=== PATIENT | female | born 1980 | race Two or more races ===

== ENCOUNTER 2020-07-22 17:40 | Emergency (ER) | payer OTHER ==
[~2020-07-22] VITALS: Ht 167.6 cm; Wt 108.9 kg
[2020-07-22 17:56] VITALS: BP 125/83
[2020-07-22] MEDS ORDERED: CYCLOBENZAPRINE 10 MG TAB PO ONE (18:05)
[2020-07-22] MEDS ORDERED: KETOROLAC 60 MG/2 ML VIAL IM ONE (18:05)
[2020-07-22] MEDS ORDERED: MORPHINE SULFATE 5 MG/ML VIAL IM ONE (18:55)
[2020-07-22 20:06] VITALS: BP 125/83
== END 2020-07-22 20:06 | disposition home or self-care (01) ==
LOC: MED 17:40
DX: G89.29 Other chronic pain (principal); M54.9 Dorsalgia, unspecified; Z88.0 Allergy status to penicillin
CPT/HCPCS: 96372; 99284; J1885; J2270

== ENCOUNTER 2021-07-04 17:49 | Emergency (ER) | payer OTHER ==
[~2021-07-04] VITALS: Ht 167.6 cm; Wt 108.9 kg
[2021-07-04 18:17] VITALS: BP 153/86
[2021-07-04] MEDS ORDERED: IBUPROFEN 600 MG TAB PO ONE (18:55)
--- NOTE | 2021-07-04 19:10 | NUR ---
41/F WITH C/O COUGH AND CHEST PAIN X3 DAYS. DENIES TAKING MEDICATION AT HOME, WAS SEEN AT A DIFFERENT ER YESTERDAY FOR SAME SYMPTOMS AND D/C. REPORTS RECEIVING TORADOL AT THE ER YESTERDAY AND STATES SHE GOT SOME RELIEF. DENIES SOB OR FEVERS AT THIS TIME.
[2021-07-04] MEDS ORDERED: ACET-10509 PO (20:04)
[2021-07-04] MEDS ORDERED: PROM118S5 PO (20:04)
[2021-07-04] MEDS ORDERED: IBUP-2213 PO (20:04)
[2021-07-04 20:45] VITALS: BP 114/79
--- NOTE | 2021-07-04 20:45 | NUR ---
Patient discharged with v/s stable. Written and verbal after care instructions given and explained. Patient alert, oriented and verbalized understanding of instructions. Ambulatory with steady gait. All questions addressed prior to discharge. ID band removed. Patient advised to follow up with PMD. Rx of TYLENOL, IBUPROFEN, PROMETHAZINE given. Patient educated on indication of medication including possible reaction and side effects. Opportunity to ask questions provided and answered.
== END 2021-07-04 20:45 | disposition home or self-care (01) ==
LOC: MED 17:49
DX: J06.9 Acute upper respiratory infection, unspecified (principal); E10.9 Type 1 diabetes mellitus without complications; Z79.1 Long term (current) use of non-steroidal anti-inflammatories (NSAID); Z79.899 Other long term (current) drug therapy; Z88.0 Allergy status to penicillin
CPT/HCPCS: 71045; 93005; 99283

== ENCOUNTER 2021-07-12 03:23 | Emergency (ER) | payer OTHER ==
[~2021-07-12] VITALS: Ht 167.6 cm; Wt 108.9 kg
[~2021-07-12 03:23] MED LIST: ACET-10509 PO; IBUP-2213 PO; PROM118S5 PO
[2021-07-12 03:30] VITALS: BP 100/56
[2021-07-12] MEDS ORDERED: methylPREDNISolone SS 125 MG/2 ML VIAL IM ONE (04:25)
[2021-07-12] MEDS ORDERED: ALBUTEROL SULFATE/IPRATROPIU 3 ML SOL IH ONE ×2 (04:25→05:41)
[2021-07-12] MEDS ORDERED: IBUPROFEN 800 MG TAB PO ONE (05:00)
[2021-07-12] MEDS ORDERED: PRED20TA5 PO (05:24)
[2021-07-12] MEDS ORDERED: ALBU0.0912 IH (05:24)
[2021-07-12] MEDS ORDERED: methylPREDNISolone SS 125 MG/2 ML VIAL ONE (05:44)
[2021-07-12] MEDS ORDERED: ACETAMINOPHEN EXTRA STRENGTH 500 MG TAB PO ONE (05:45)
[2021-07-12] MEDS ORDERED: diphenhydrAMINE 50 MG/ML VIAL IVP ONE (05:45)
--- NOTE | 2021-07-12 05:49 | NUR ---
RT giving breathing tx
--- NOTE | 2021-07-12 05:50 | NUR ---
medicated patient per ERMD order.
--- NOTE | 2021-07-12 06:04 | NUR ---
swabs collected and sent to lab
[2021-07-12 06:27] VITALS: BP 146/75
--- NOTE | 2021-07-12 06:27 | NUR ---
Patient discharged with v/s stable. Written and verbal after care instructions given and explained. Patient alert, oriented and verbalized understanding of instructions. Ambulatory with steady gait. All questions addressed prior to discharge. ID band removed. Patient advised to follow up with PMD. Rx of albuterol sulfate and deltasone given. Patient educated on indication of medication including possible reaction and side effects. Opportunity to ask questions provided and answered.
== END 2021-07-12 06:27 | disposition home or self-care (01) ==
LOC: MED 03:23
DX: R05.9 Cough, unspecified (principal); R09.89 Other specified symptoms and signs involving the circulatory and respiratory systems; Z20.822 Contact with and (suspected) exposure to COVID-19
CPT/HCPCS: 71045; 87426; 87804; 94640; 96372; 99284; J2930

== ENCOUNTER 2021-07-29 17:58 | Emergency (ER) | payer OTHER ==
[~2021-07-29] VITALS: Ht 167.6 cm; Wt 108.9 kg
[~2021-07-29 17:58] MED LIST changes: +ALBU0.0912 IH; +PRED20TA5 PO
[2021-07-29 18:27] VITALS: BP 136/95
--- NOTE | 2021-07-29 18:31 | NUR ---
PT TO WAIT IN LOBBY.
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
[2021-07-29] MEDS ORDERED: MORPHINE SULFATE 4 MG/ML SYR ONE (19:28)
[2021-07-29] MEDS ORDERED: MORPHINE SULFATE 4 MG/ML SYR IM ONE (19:30)
[2021-07-29] MEDS ORDERED: ONDANSETRON 4 MG ODT PO ONE (19:30)
[2021-07-29] MEDS ORDERED: ACET-8386 PO (21:34)
[2021-07-29 22:00] VITALS: BP 136/95
--- NOTE | 2021-07-29 22:04 | NUR ---
Patient discharged with v/s stable. Written and verbal after care instructions given and explained. Patient alert, oriented and verbalized understanding of instructions. Ambulatory with steady gait. All questions addressed prior to discharge. ID band removed. Patient advised to follow up with PMD. Rx of HYDROCODONE/ACETAMINOPHEN given. Patient educated on indication of medication including possible reaction and side effects. Opportunity to ask questions provided and answered.
== END 2021-07-29 22:04 | disposition home or self-care (01) ==
LOC: MED 17:58
DX: S16.1XXA Strain of muscle, fascia and tendon at neck level, initial encounter (principal); E10.9 Type 1 diabetes mellitus without complications; Z90.49 Acquired absence of other specified parts of digestive tract; Z88.0 Allergy status to penicillin; Z98.890 Other specified postprocedural states; Z79.899 Other long term (current) drug therapy; V89.2XXA Person injured in unspecified motor-vehicle accident, traffic, initial encounter; Y93.89 Activity, other specified; Y92.89 Other specified places as the place of occurrence of the external cause; Y99.8 Other external cause status
CPT/HCPCS: 72050; 72072; 96372; 99284; J2270; Q0162

== ENCOUNTER 2021-11-11 20:51 | Inpatient (IN) | payer OTHER ==
[~2021-11-11] VITALS: Ht 167.6 cm; Wt 112.9 kg
[~2021-11-11 20:51] MED LIST changes: +ACET-8386 PO
[2021-11-11 21:06] VITALS: BP 135/80
--- NOTE | 2021-11-11 21:18 | NUR ---
Dennis otero in [facility] - 11/11/21 at 2126 by JUSTINE PT W/C ASSISTED TO BED 2
--- NOTE | 2021-11-11 21:26 | NUR ---
PT W/C ASSISTED TO BED 11 FOLLOWING URINE COLLECTION
--- NOTE | 2021-11-11 21:50 | NUR ---
41 Y/O F PRESENT TO ED WITH C/C OF BACK PAIN. PT A0X4, ABLE TO LET NEEDS KNOWN. 10/10 SHARP STABBING PAIN TO LOWER BACK [id number] THAT RADIATES DOWN BILAT LOWER EXTREMITIES AND UP BACK TOWARDS NECK. PT ABLE TO MOVE LOWER EXTREMITIES WITH SENSATION PRESENT, BUT UNABLE TO BARE WEIGHT. PETECHIAE PRESENT TO BILAT FEET AND LOWER EXTREMITIES. INCREASED PAIN ON PELPATION TO BILAT CALF AND THIGHS. PREVIOUSLY TAKEN IBUPROFEN AND TYLENOL WITHOUT RELIEF. PMH: DM TYPE 1 ALLERGIES: PCN
[2021-11-11] MEDS ORDERED: ONDANSETRON 4 MG/2 ML VIAL IVP ONE (22:20)
[2021-11-11] MEDS ORDERED: MORPHINE SULFATE 4 MG/ML SYR IVP ONE (22:20)
[2021-11-11] MEDS ORDERED: NACL 0.9% 1,000 ML IV ONE (22:20)
[2021-11-11 22:35] LABS: BASOPHILS % (AUTO) 0.2 % (0.0-2.0); EOSINOPHILS # (AUTO) 0.2 K/uL (0-0.4); EOSINOPHILS % (AUTO) 1.8 % (0.0-4.0); HEMATOCRIT 40.8 % (36-48); HEMOGLOBIN 13.4 g/dL (12.0-16.0); MEAN CORPUSCULAR HEMOGLOBIN 27 pg (27-31); MEAN CORPUSCULAR HGB CONC 33 g/dL (33-37); MONOCYTES # (AUTO) 0.5 K/uL (0.8-1.0); MONOCYTES % (AUTO) 4.8 % (1.7-9.3); NEUTROPHILS % (AUTO) 62.2 % (42.2-75.2); PLATELET COUNT (AUTO) 356 K/uL (140-450); RED BLOOD CELL COUNT(AUTO) 4.98 MIL/uL (4.20-5.40); RED CELL DISTRIBUTION WIDTH 14.3 % (11.6-13.7); WHITE BLOOD COUNT (AUTO) 9.6 K/uL (4.8-10.8)
--- NOTE | 2021-11-11 22:51 | NUR ---
PT TAKEN FOR CT OF LOWER BACK
[2021-11-11 23:01] LABS: ALBUMIN 3.1 g/dL (3.4-5.0); ANION GAP 11.6 (8-16); CARBON DIOXIDE 27.4 mmol/L (21-32); TOTAL BILIRUBIN 0.2 mg/dL (0.0-1.0)
--- NOTE | 2021-11-11 23:21 | NUR ---
PT ASSISTED TO RESTROOM
[2021-11-11] MEDS ORDERED: INSULIN REGULAR, HUMAN 100 UNIT/ML VIAL IV ONE (23:35)
[2021-11-12] MEDS ORDERED: ONDANSETRON 4 MG/2 ML VIAL ONE (00:16)
[2021-11-12] MEDS ORDERED: MORPHINE SULFATE 4 MG/ML SYR ONE (00:16)
--- NOTE | 2021-11-12 01:00 | NUR ---
PT OBSERVED. LAYING IN BED WITH FACIAL GRIMACING DUE TO BACK PAIN. VSS.
[2021-11-12] MEDS ORDERED: MORPHINE SULFATE 4 MG/ML SYR IVP ONE ×2 (01:35→07:50)
--- NOTE | 2021-11-12 02:15 | NUR ---
PT COMPLAINED OF SEVERE BACK PAIN. MEDICATED WITH MORPHINE ORDERED.
--- NOTE | 2021-11-12 03:00 | NUR ---
PT ASSISTED TO RESTROOM FOR UA COLLECTION
[2021-11-12 03:59] LABS: APPEARANCE,URINE SL CLOUDY (CLEAR); BILIRUBIN,URINE NEGATIVE (NEGATIVE); BLOOD, URINE TRACE-I (NEGATIVE); COLOR,URINE YELLOW (YELLOW); LEUKOCYTE ESTERASE ,URINE TRACE (NEGATIVE); NITRITE, URINE POSITIVE (NEGATIVE); PH,URINE 6.5 (5.0-9.0); UGLUCOSE TRACE (NEGATIVE)
[2021-11-12 04:04] LABS: RBC,URINE 0-5 /HPF (0-5)
[2021-11-12] MEDS ORDERED: cefTRIAXone 2,000 MG in DEXTROSE 5% 100 ML IV ONE (05:40)
--- NOTE | 2021-11-12 07:24 | NUR ---
REPORT GIVEN TO [facility] MANAGER PERIOPERATIVE FOR CONTINUITY OF CARE
--- NOTE | 2021-11-12 07:25 | NUR ---
Report received from MAUREEN Carpenter for transfer of care.
--- NOTE | 2021-11-12 07:35 | NUR ---
JAE specimen obtained, walked to lab. Handed to CPT Stephanie.
[2021-11-12] MEDS ORDERED: cefTRIAXone 2,000 MG VIAL ONE (07:38)
[2021-11-12] MEDS ORDERED: HYDROcodone/APAP 5/325 MG 1 TAB TAB PO PRN (07:40)
[2021-11-12] MEDS ORDERED: ACETAMINOPHEN 325 MG TAB PO PRN (07:40)
[2021-11-12] MEDS ORDERED: ONDANSETRON 4 MG/2 ML VIAL IVP PRN (07:40)
[2021-11-12] MEDS ORDERED: ZOLPIDEM 5 MG TAB PO PRN (07:40)
[2021-11-12] MEDS ORDERED: LORazepam 1 MG TAB PO PRN (07:40)
[2021-11-12] MEDS ORDERED: DEXTROSE 50% 50 ML SYR IVP PRN (07:55)
--- NOTE | 2021-11-12 08:19 | NUR ---
Patient was handed breakfast. Patient is sitting up on bed. All needs met. No signs of distress noted.
[2021-11-12] MEDS: NACL 0.9% 1,000 ML IV SCH ×2 (09:07→20:10)
--- NOTE | 2021-11-12 09:12 | NUR ---
Patient will be admitted to care of Dr. Cote. Admited to Med-Surg. Will go to room 104 A. Belongings list completed. Report to MAUREEN Lozano.
[2021-11-12 09:30] VITALS: BP 155/103
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
--- NOTE | 2021-11-12 10:30 | NUR ---
REEVALUATED PT'S PAIN LEVEL. PT CURRENTLY SLEEPING, EASILY AROUSED TO NAME. PT REQUESTED OXYGEN--DOES NOT USE HOME O2--NC GIVEN AT 0.5L/MIN FOR COMFORT. PT DENIES ANY PAIN AT THIS TIME. Addendum: 11/12/21 at 1432 by Marta Lai RN PAIN REEVALUATED AT 1130. PRN MORPHINE GIVEN AT 1039.
[2021-11-12] MEDS: ENOXAPARIN 40 MG/0.4 ML SYR SUBQ SCH (10:38)
[2021-11-12] MEDS: INSULIN LISPRO SLIDING SCALE 100 UNITS/ML VIAL SUBQ PRN ×3 (10:39→20:23)
[2021-11-12] MEDS: DOCUSATE SODIUM 100 MG GELCAP PO SCH (10:39)
[2021-11-12] MEDS: BLOOD GLUCOSE MONITORING 1 DEV DEV FS SCH ×3 (10:39→20:20)
[2021-11-12] MEDS: MORPHINE SULFATE 4 MG/ML SYR IVP PRN ×2 (10:39→20:15)
--- NOTE | 2021-11-12 10:39 | NUR ---
PT STATES SHE IS HAVING PAIN IN HER BACK AT A SCALE OF 10/10. PT WAS GIVEN MORPHINE IVP ORDERED. BP WAS 155/103 PRIOR TO ADMINISTRATION OF MEDICATION.
--- NOTE | 2021-11-12 11:16 | NUR ---
DC PLANNIN YRS OLD FEMALE PATIENT WAS ADMITTED FROM HOME WITH A DX OF PYELONEPHRITIS AND DIABETES. PATIENT HAS A HX OF DM.LUMBAR SPINE CT SHOWED NO ACUTE BONY ABNORMALITY. RAPID COVID TEST NEGATIVE. BLOOD AND URINE CULTURE PENDING. ADMINISTERED IVF, IV ABX ROCEPHIN AND CONTINUED HOME MEDS. DC PLAN TO GO HOME WHEN STABLE CM TO FOLLOW. Addendum: 11/14/21 at 1036 by Yokasta Felix RN DC PLANNING: CONTINUE IV ABX ROCEPHIN AND IVF. AWAITING FOR FINAL URINE CULTURE RESULT. DC PLAN TO GO HOME WHEN STABLE. CM TO FOLLOW
--- NOTE | 2021-11-12 14:00 | NUR ---
PT IS AWAKE AND ALERT. DENIES PAIN AT THIS TIME. IN AND OUT OF SLEEP WITH NO DISTRESS NOTED. IV IS PATENT AND INFUSING ORDERED. PT IS STABLE.
[2021-11-12 16:00] VITALS: BP 120/76
--- NOTE | 2021-11-12 16:00 | NUR ---
PT IS UP TO THE RESTROOM. NO DISTRESS NOTED. DENIES ANY PAIN WHILE URINATING. PT ABLE TO URINATE ADEQUATE AMOUNT. PAIN ON THE BACK AND LEGS STATED BY PT. DOES NOT NEED PAIN MEDS AT THIS TIME. SHE WILL NOTIFY WHEN NEEDING PAIN MEDS.
--- NOTE | 2021-11-12 17:12 | NUR ---
PT COMPLAINED OF PAIN IN LOWER BACK. PAIN RADIATES TO UPPER BACK AND NECK, AND DOWN TO LEGS. PAIN RATED AT 8/10. VITAL SIGNS WNL, WITH BP AT 120/81. PRN PAIN MEDICATION GIVEN, PT ASSISTED IN REPOSITIONING FOR COMFORT.
--- NOTE | 2021-11-12 19:14 | NUR ---
ENDORSED PT TO TILLER MAN NURSE FOR CONTINUITY OF CARE. PT IS STABLE. PLAN OF CARE DISCUSSED.
--- NOTE | 2021-11-12 19:15 | NUR ---
REPORT GIVEN FROM AM NURSE. PATIENT WELL RESTED ON ROOM AIR. NO ACUTE DISTRESS NOTED. BREATHING EVEN UNLABORED. SAFETY MEASURES IN PLACE. PATIENT IS ABLE TO AMBULATE WITH ASSIST. CALL LIGHT WITHIN REACH. WILL CONTINUE TO MONITOR.
--- NOTE | 2021-11-12 20:20 | NUR ---
BLOOD SUGAR WAS 360, HUMALOG INSULIN ADMINISTERED ORDERED PER SLIDING SCALE.
[2021-11-13] VITALS: BP 151/78
[2021-11-13] MEDS: BLOOD GLUCOSE MONITORING 1 DEV DEV FS SCH ×4 (06:38→21:01)
--- NOTE | 2021-11-13 06:38 | NUR ---
BLOOD SUGAR WAS 247, HUMALOG INSULIN ADMINISTERED ORDERED PER SLIDING SCALE.
[2021-11-13] MEDS: INSULIN LISPRO SLIDING SCALE 100 UNITS/ML VIAL SUBQ PRN ×4 (06:39→21:01)
--- NOTE | 2021-11-13 07:10 | NUR ---
BEDSIDE ENDORSEMENT GIVEN TO AM SHIFT RN FOR CONTINUITY OF CARE. PATIENT IS STABLE.
--- NOTE | 2021-11-13 07:15 | NUR ---
PATIENT HAS BEEN SCREENED AND CATEGORIZED MODERATE NUTRITION RISK. PATIENT WILL BE SEEN WITHIN 3-5 DAYS OF ADMISSION. / SHANELL AMBRIZ RD
[2021-11-13] MEDS: MORPHINE SULFATE 4 MG/ML SYR IVP PRN (07:23)
--- NOTE | 2021-11-13 07:23 | NUR ---
COMPLAINED OF SEVERE PAIN, MEDICATED WITH MORPHINE PRN.
[2021-11-13 07:28] LABS: BASOPHILS # (AUTO) 0.1 K/uL (0.00-0.22); BASOPHILS % (AUTO) 0.8 % (0.0-2.0); EOSINOPHILS # (AUTO) 0.2 K/uL (0-0.4); EOSINOPHILS % (AUTO) 2.7 % (0.0-4.0); HEMATOCRIT 37.3 % (36-48); HEMOGLOBIN 12.1 g/dL (12.0-16.0); LYMPHOCYTES % (AUTO) 44.7 % (20.5-51.1); MEAN CORPUSCULAR HEMOGLOBIN 27 pg (27-31); MEAN CORPUSCULAR HGB CONC 32 g/dL (33-37); MEAN CORPUSCULAR VOLUME 83.3 fL (80-94); MONOCYTES # (AUTO) 0.4 K/uL (0.8-1.0); MONOCYTES % (AUTO) 5.8 % (1.7-9.3); NEUTROPHILS # (AUTO) 3.1 K/uL (1.8-7.7); PLATELET COUNT (AUTO) 311 K/uL (140-450); RED BLOOD CELL COUNT(AUTO) 4.48 MIL/uL (4.20-5.40); RED CELL DISTRIBUTION WIDTH 14.4 % (11.6-13.7); WHITE BLOOD COUNT (AUTO) 6.8 K/uL (4.8-10.8)
--- NOTE | 2021-11-13 07:53 | NUR ---
RECEIVED PATIENT, AOX4, RESPIRATIONS EVEN AND UNLABORED ON ROOM AIR. REPORTS PAIN IN MID-BACK RADIATING TO BILATERAL LEGS, JUST GIVEN PRN MORPHINE. IV FLUIDS INFUSING. WILL CONTINUE TO MONITOR.
[2021-11-13 08:00] VITALS: BP 151/78
[2021-11-13 08:06] LABS: ALBUMIN 2.5 g/dL (3.4-5.0); ANION GAP 8.7 (8-16); CARBON DIOXIDE 26.6 mmol/L (21-32); CREATININE 0.6 mg/dL (0.6-1.3); MAGNESIUM 1.8 mg/dL (1.8-2.4); POTASSIUM 4.3 mmol/L (3.5-5.1); TOTAL BILIRUBIN 0.2 mg/dL (0.0-1.0)
[2021-11-13] MEDS: DOCUSATE SODIUM 100 MG GELCAP PO SCH (08:34)
[2021-11-13] MEDS: NACL 0.9% 1,000 ML IV SCH ×2 (08:34→21:10)
[2021-11-13] MEDS: ENOXAPARIN 40 MG/0.4 ML SYR SUBQ SCH (08:36)
--- NOTE | 2021-11-13 09:07 | NUR ---
AMBULATED WITH PATIENT TO BATHROOM, UNSTEADY GAIT. VOIDED 400 CC DARK YELLOW URINE. REPORTS PAIN IS IMPROVING, HOWEVER STILL EXPERIENCING PAIN WITH MOVEMENT. PAIN MEDICATION OPTIONS DISCUSSED WITH PATIENT. FALL AND SAFETY PRECAUTIONS IN PLACE.
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
--- NOTE | 2021-11-13 15:48 | NUR ---
PATIENT REPORTED PAIN IN MID-BACK. PRN NORCO GIVEN. AMBULATED TO BATHROOM, VOIDED CLEAR YELLOW URINE. TOLERATING MEALS WELL WITH NO NAUSEA/VOMITING. IV FLUIDS INFUSING. WILL CONTINUE TO MONITOR.
[2021-11-13 16:00] VITALS: BP 140/71
[2021-11-13] MEDS: HYDROcodone/APAP 10/325 MG 1 TAB TAB PO PRN (16:11)
[2021-11-13] MEDS: MORPHINE SULFATE 2 MG/ML SYR IVP PRN ×2 (16:45→20:44)
--- NOTE | 2021-11-13 16:56 | NUR ---
PATIENT WAS STILL EXPERIENCING SEVERE PAIN ONE HOUR AFTER NORCO ADMINISTRATION. NOTIFIED DR KEY WHO WILL HOLD DISCHARGE AND ORDERED PRN MORPHINE. UPDATED PATIENT AND OF PLAN OF CARE. AMBULATED TO BATHROOM, WILL CONTINUE TO MONITOR.
--- NOTE | 2021-11-13 17:34 | NUR ---
PATIENT REPORTS PAIN IS RELIEVED AFTER MORPHINE. AT BEDSIDE. UPDATED PATIENT THAT SHE WILL BE STAYING THE NIGHT.
--- NOTE | 2021-11-13 18:51 | NUR ---
PATIENT REPORTS PAIN IS COMING BACK, BECOMING INTOLERABLE. TOLERATED LUNCH WELL, NO NAUSEA/VOMITING. NOTIFIED DR. KEY. WILL ENDORSE TO NIGHT MAUREEN.
[2021-11-13] MEDS: KETOROLAC 30 MG/ML VIAL IVP PRN (19:08)
--- NOTE | 2021-11-13 19:09 | NUR ---
RECEIVED ORDER FOR TORADOL. GIVEN TO PATIENT.
--- NOTE | 2021-11-13 19:15 | NUR ---
ENDORSED TO NIGHTSHIFT NURSE FOR CONTINUITY OF CARE. DISCUSSED PLAN OF CARE. PT STABLE.
--- NOTE | 2021-11-13 19:20 | NUR ---
RECEIVED BEDSIDE REPORT FROM DAY SHIFT RN FOR CONTINUITY OF CARE. PT IS AWAKE IN BED. AAOX4 ON RA. PT HAS NO COMPLAINS AT THIS TIME. PT HAS LEFT AC 20 GAUGE WITH NS 80 ML/HR. CALL LIGHT WITHIN REACH. ALL SAFETY MEASURES TAKEN. WILL CONTINUE TO MONITOR THE PT.
[2021-11-13 20:00] VITALS: BP 132/71
--- NOTE | 2021-11-14 00:14 | NUR ---
PT IS AWAKE IN BED. PT IS NOT IN ANY DISTRESS. PT WANTED SOME ICE CHIPS. GIVEN REQUESTED. NO OTHER COMPLAINS. IVF RUNNING PER MD ORDER. CALL LIGHT WITHIN REACH. ALL SAFETY MEASURES TAKEN. WILL CONTINUE TO MONITOR THE PT.
[2021-11-14] MEDS: MORPHINE SULFATE 2 MG/ML SYR IVP PRN ×2 (00:37→10:14)
--- NOTE | 2021-11-14 00:40 | NUR ---
PT WAS COMPLAINING OF 10/10 PAIN. MORPHINE WAS GIVEN PER MD ORDER. NO OTHER COMPLAINS. WILL CONTINUE TO MONITOR THE PT.
[2021-11-14 04:00] VITALS: BP 135/77
--- NOTE | 2021-11-14 04:30 | NUR ---
PT IS SLEEPING IN BED COMFORTABLY. VSS. NO ACUTE DISTRESS. IVF RUNNING PER MD ORDER. WILL CONTINUE TO MONITOR THE PT.
[2021-11-14] MEDS: INSULIN LISPRO SLIDING SCALE 100 UNITS/ML VIAL SUBQ PRN ×4 (06:32→21:58)
[2021-11-14] MEDS: BLOOD GLUCOSE MONITORING 1 DEV DEV FS SCH ×4 (06:37→21:54)
[2021-11-14 07:01] LABS: BASOPHILS # (AUTO) 0.1 K/uL (0.00-0.22); BASOPHILS % (AUTO) 0.9 % (0.0-2.0); EOSINOPHILS # (AUTO) 0.2 K/uL (0-0.4); EOSINOPHILS % (AUTO) 2.2 % (0.0-4.0); HEMATOCRIT 35.7 % (36-48); HEMOGLOBIN 11.6 g/dL (12.0-16.0); LYMPHOCYTES # (AUTO) 3.7 K/uL (2.5-16.5); LYMPHOCYTES % (AUTO) 43.9 % (20.5-51.1); MEAN CORPUSCULAR HEMOGLOBIN 27 pg (27-31); MEAN CORPUSCULAR HGB CONC 32 g/dL (33-37); MONOCYTES # (AUTO) 0.5 K/uL (0.8-1.0); MONOCYTES % (AUTO) 5.6 % (1.7-9.3); NEUTROPHILS # (AUTO) 3.9 K/uL (1.8-7.7); NEUTROPHILS % (AUTO) 47.4 % (42.2-75.2); PLATELET COUNT (AUTO) 322 K/uL (140-450); RED CELL DISTRIBUTION WIDTH 14.4 % (11.6-13.7); WHITE BLOOD COUNT (AUTO) 8.3 K/uL (4.8-10.8)
[2021-11-14 07:11] LABS: ALBUMIN 2.5 g/dL (3.4-5.0); ANION GAP 8.8 (8-16); CARBON DIOXIDE 25.9 mmol/L (21-32); CREATININE 0.5 mg/dL (0.6-1.3); MAGNESIUM 1.8 mg/dL (1.8-2.4); POTASSIUM 3.7 mmol/L (3.5-5.1); TOTAL BILIRUBIN 0.1 mg/dL (0.0-1.0)
--- NOTE | 2021-11-14 07:30 | NUR ---
ENDORSED PT TO DAY SHIFT RN FOR CONTINUITY OF CARE. PT IS STABLE.
--- NOTE | 2021-11-14 07:31 | NUR ---
RECEIVED REPORT FROM OFFICE MACHINES WIRER NURSE FOR CONTINUITY OF CARE. PT IS IN BED AT THIS TIME SLEEPING. RESPIRATIONS ARE EVEN AND UNLABORED ON ROOM AIR. NO SIGNS OF DISTRESS NOTED. PT IS ALERT AND ORIENTED X4. ABLE TO MAKE NEEDS KNOWN, ABLE TO FOLLOW COMMANDS. PT IS ON CCHO DIET, TOLERATING WELL. ABD IS NONTENDER, NONDISTENDED WITH BOWEL SOUNDS PRESENT IN ALL QUADRANTS. PT SKIN IS WARM, DRY, AND INTACT. PT HAS IV TO L AC, 20G. CALL LIGHT WITHIN REACH. ALL SAFETY MEASURES IN PLACE. WILL CONTINUE TO MONITOR.
[2021-11-14 08:00] VITALS: BP 123/79
--- NOTE | 2021-11-14 08:00 | NUR ---
Patient's Plan of Care was discussed and reviewed with YARN WRAPPER: CHANDAN MAGUIRE, WILL CONITNUE WITH CURRENT POC. [id number]
[2021-11-14] MEDS: DOCUSATE SODIUM 100 MG GELCAP PO SCH (09:28)
[2021-11-14] MEDS: ENOXAPARIN 40 MG/0.4 ML SYR SUBQ SCH (09:28)
--- NOTE | 2021-11-14 09:28 | NUR ---
ADMINISTERED ALL SCHEDULED MEDICATIONS. EDUCATED PT ON MEDS ADMINISTERED. PT VERBALIZED UNDERSTANDING. WILL CONTINUE TO MONITOR.
[2021-11-14] MEDS: NACL 0.9% 1,000 ML IV SCH ×2 (09:44→22:10)
--- NOTE | 2021-11-14 11:19 | NUR ---
PT CALLED AND STATED SHE WANTED TO USE RESTROOM. WENT IN TO UNHOOK PT FROM IV PUMP. PT STATED "YOU NEED TO BEND DOWN AND PUT MY SOCKS ON FOR ME. I ALSO NEED YOU TO HELP ME GET OFF OF THE BED, I CANT DO IT ALONE". PUT ON PT SOCKS AND ASSISTED PT UP. WILL CONTINUE TO MONITOR.
[2021-11-14] MEDS: CYCLOBENZAPRINE 10 MG TAB PO SCH ×2 (13:44→18:10)
--- NOTE | 2021-11-14 14:25 | NUR ---
PT CALLED AND STATED SHE WANTED HELP GETTING UP OUT OF BED AGAIN. WENT TO HELP PT, HOWEVER PT WANTED NURSE TO MATH PROFESSOR FRONT OF HER AND ONE PERSON ASSIST TO STAND WHILE PT PUT MUCH OF HER OWN WEIGHT ON TO NURSE. INFORMED PT THAT PER PROPER BODY MECHANICS, NURSE WAS UNABLE TO ASSIST PT ALONE, AND I WOULD NEED MORE ASSISTANCE. PT STATED "NO I CANT GET UP ON MY OWN, ITS FINE". WILL CONTINUE TO MONITOR.
--- NOTE | 2021-11-14 15:06 | NUR ---
RECEIVED REPORT FROM CHANDAN MAGUIRE FOR CONTINUOUS OF CARE.
--- NOTE | 2021-11-14 15:06 | NUR ---
ENDORSED PT TO MAUREEN MOCK.
[2021-11-14] MEDS: HYDROcodone/APAP 10/325 MG 1 TAB TAB PO PRN (15:20)
[2021-11-14 16:00] VITALS: BP 140/72
[2021-11-14] MEDS: KETOROLAC 30 MG/ML VIAL IVP PRN (18:10)
--- NOTE | 2021-11-14 19:32 | NUR ---
ENDORSED PT TO SCHOOL BUS INSPECTOR NURSE MEDELLIN FOR CONTINUOUS OF CARE.
--- NOTE | 2021-11-14 19:35 | NUR ---
RECEIVED PT REPORT FROM NURSE ANDREZ HAWLEY FOR CONTINUITY OF CARE. PT A&OX4. RR EVEN AND UNLABORED WITH EQUAL CHEST RISE.PT IS STABLE. SITTING UP IN BED. ON RM AIR GI INTACT ATE DINNER 100%. ASKING FOR A TUNA SANDWICH. SKIN INTACT. IV LAC 20 G PATENT, INFUSING NS @80CC/HR. PT IS AMBULATORY AND CONTINENT. ALL SAFETY MEASURES IN PLACE.BED IN LOW & LOCKED POSITION. CALL LIGHT WITHIN REACH. ALL NEEDS ADDRESSED. WILL CONTINUE TO MONITOR.
[2021-11-14 20:00] VITALS: BP 177/85
--- NOTE | 2021-11-14 22:15 | NUR ---
HS MEDS GIVEN TS=147 COVERED WITH 8 UNITS OF HUMALOG INSULIN PER SLIDING SCALE. C/O PAIN TOO EARLY FOR TORADOL AND MSO4 DC'D. OFFERED ATIVAN 1MG PO. EFFECTIVE SLEEPING AFTER 15 MINUTES.
--- NOTE | 2021-11-15 04:00 | NUR ---
ASSISTED PT TO BATHROOM WITH STANDBY ASSIST OF ONE. PT'S GAIT STEADY BUT SLOW. NAD. BACK TO BED. REPOSITIONS SELF. CALL LIGHT WITHIN REACH WILL CONTINUE TO MONITOR.
[2021-11-15] MEDS: BLOOD GLUCOSE MONITORING 1 DEV DEV FS SCH ×3 (06:10→17:04)
[2021-11-15] MEDS: INSULIN LISPRO SLIDING SCALE 100 UNITS/ML VIAL SUBQ PRN ×3 (06:16→17:14)
--- NOTE | 2021-11-15 06:30 | NUR ---
BS= 282 COVERED WITH 6 UNITS OF HUMALOG INSULIN PER SLIDING SCALE. UP TO BATHROOM VOIDED . BACK TO BED . C/O 01/05 PAIN IN LOW BACK. OFFERED HER NORCO 5/325MG PO. "NORCO DOESN'T WORK FOR ME." TORADOL 30MG IVP GIVEN @ 0635. EFFECTIVE SLEEPING AFTER 15 MINUTES. CALL LIGHT WITHIN REACH. CONTINUE TO MONITOR. 2 0635
[2021-11-15] MEDS: KETOROLAC 30 MG/ML VIAL IVP PRN ×3 (06:35→19:52)
--- NOTE | 2021-11-15 07:10 | NUR ---
RECEIVED REPORT FROM RESIDENTIAL CARE OFFICER NURSE. PT AOX4, ON ROOM AIR, WITH BREATHING UNLABORED.PT IS AMBULATORY, BUT NEEDS ASSISTANCE. PT DENIES PAIN AT THIS TIME. IV ON LEFT AC, 20G RUNNING AT 80ML/HR, INFUSING WELL. DISCUSSED PLAN OF CARE. WILL CONTINUE TO MONITOR.
[2021-11-15 07:15] LABS: BASOPHILS # (AUTO) 0.1 K/uL (0.00-0.22); BASOPHILS % (AUTO) 0.8 % (0.0-2.0); EOSINOPHILS # (AUTO) 0.2 K/uL (0-0.4); HEMATOCRIT 36.2 % (36-48); HEMOGLOBIN 11.9 g/dL (12.0-16.0); LYMPHOCYTES # (AUTO) 2.9 K/uL (2.5-16.5); LYMPHOCYTES % (AUTO) 32.2 % (20.5-51.1); MEAN CORPUSCULAR HEMOGLOBIN 27 pg (27-31); MEAN CORPUSCULAR HGB CONC 33 g/dL (33-37); MEAN CORPUSCULAR VOLUME 83.5 fL (80-94); MONOCYTES # (AUTO) 0.5 K/uL (0.8-1.0); MONOCYTES % (AUTO) 5.2 % (1.7-9.3); NEUTROPHILS # (AUTO) 5.3 K/uL (1.8-7.7); NEUTROPHILS % (AUTO) 59.8 % (42.2-75.2); PLATELET COUNT (AUTO) 293 K/uL (140-450); RED BLOOD CELL COUNT(AUTO) 4.34 MIL/uL (4.20-5.40); RED CELL DISTRIBUTION WIDTH 14.3 % (11.6-13.7); WHITE BLOOD COUNT (AUTO) 8.9 K/uL (4.8-10.8)
--- NOTE | 2021-11-15 07:20 | NUR ---
ENDORSED PT REPORT TO AM NURSE JOHNATHAN RN FOR CONTINUITY OF CARE. PT IS STABLE.
[2021-11-15 07:23] LABS: ALBUMIN 2.5 g/dL (3.4-5.0); ANION GAP 11.2 (8-16); CARBON DIOXIDE 24.7 mmol/L (21-32); CREATININE 0.6 mg/dL (0.6-1.3); MAGNESIUM 1.9 mg/dL (1.8-2.4); POTASSIUM 3.9 mmol/L (3.5-5.1); TOTAL BILIRUBIN 0.1 mg/dL (0.0-1.0)
[2021-11-15 08:00] VITALS: BP 133/86
[2021-11-15] MEDS: CYCLOBENZAPRINE 10 MG TAB PO SCH ×3 (08:49→17:41)
[2021-11-15] MEDS: DOCUSATE SODIUM 100 MG GELCAP PO SCH (08:49)
[2021-11-15] MEDS: ENOXAPARIN 40 MG/0.4 ML SYR SUBQ SCH (08:52)
[2021-11-15] MEDS: NACL 0.9% 1,000 ML IV SCH (10:40)
--- NOTE | 2021-11-15 12:00 | NUR ---
PT IS LYING ON HER BED, AWAKE. PT NOT IN DISTRESS AT THIS TIME. WILL CONTINUE TO MONITOR.
--- NOTE | 2021-11-15 14:53 | NUR ---
11/15/21 RD INITIAL ASSESSMENT COMPLETED PLEASE REFER TO NUTRITION ASSESSMENT UNDER CARE ACTIVITY FOR ESTIMATED NUTRITIONAL NEEDS. 1. CONTINUE CCHO 60GM DIET TOLERATED 2. MONITOR BLOOD GLUCOSE LEVELS -IF STAYS HIGH, RECOMMEND CCHO 45GM DIET 3. RD TO FOLLOW-UP 3-5 DAYS, MODERATE RISK SHANELL AMBRIZ RD
[2021-11-15 16:00] VITALS: BP 143/78
--- NOTE | 2021-11-15 16:00 | NUR ---
HAM SANDWICH GIVEN TO PT, PER PT'S REQUEST.
[2021-11-15] MEDS: HYDROcodone/APAP 10/325 MG 1 TAB TAB PO PRN (17:59)
--- NOTE | 2021-11-15 18:00 | NUR ---
PT SEEN WITH WHIT-JOAN, AT BEDSIDE.
--- NOTE | 2021-11-15 18:00 | NUR ---
PT COMPLAINED OF PAIN ON LOWER BACK, WITH A PAINSCALE OF 6 OUT OF 10. NORCO GIVEN PER DR'S ORDER.
[2021-11-15] MEDS ORDERED: ACET-8386 PO (18:59)
[2021-11-15 19:17] VITALS: BP 143/78
--- NOTE | 2021-11-15 19:25 | NUR ---
GAVE REPORT TO MEN'S DESIGNER NURSE. PT IS STABLE. DISCUSSED PLAN OF CARE.
--- NOTE | 2021-11-15 19:40 | NUR ---
rECEIVED ENDORSEMENT OF PATIENT FROM JOHNATHAN REDDY, PATIENT WILL DISCHARGE TODAY. AT BEDSIDE TO TRANSFER PATIENT HOME VIA PERSONAL VEHICLE. PATIENT IS ALERT AND ORIENTED X 4. AWAITING MD FINAL ORDERS AND PRESCRIPTION. NO NOTED S/SX OF ACUTE PAIN AT THIS TIME. BED AT THE LOWEST LEVEL. SIDE RAILS X 2. CALL LIGHT WITHIN REACH AND ENCOURAGED TO USE FOR ALL ASSISTANCE. [email or web address]
[2021-11-15] MEDS ORDERED: HYDR-5043 PO (19:44)
--- NOTE | 2021-11-15 19:46 | NUR ---
PATIENT REQUESTED PAIN PRN. LEVAR REDDY GAVE VIA IVP. [email or web address]
--- NOTE | 2021-11-15 20:11 | NUR ---
PATIENT WAS EDUCATED ON DISCHARGED MEDICATION TO THE PHARMACY OF CHOICE. IV WAS DISCONTINUED. ALL PAPERWORK WAS GIVEN AND SIGNED. PATIENT WAS ENCOURAGED TO GET DRESSED TO GET TRANSFERRED VIA WHEELCHAIR THEIR PERSON VEHICLE. [email or web address]
--- NOTE | 2021-11-15 20:33 | NUR ---
PATIENT WAS TRANSFERRED TO PERSONAL VEHICLE VIA WHEELCHAIR WITH MUSEUM CURATOR. ARMBAND REMOVED AND IV REMOVED. PATIENT WAS STABLE AND SUITABLE FOR DISCHARGE. DISCHARGE PAPERWORK WAS SIGNED AND GIVEN A COPY TO PATIENT. [email or web address]
== END 2021-11-15 20:32 | disposition home or self-care (01) | DRG 463 ==
LOC: MED 20:51 → MMU 11-12 07:36 → MED 11-12 08:19 → MTU 11-12 08:56
PROVIDERS: ADMIT Hospitalist; ATTEND Hospitalist
DX: N10 Acute pyelonephritis (principal); E11.00 Type 2 diabetes mellitus with hyperosmolarity without nonketotic hyperglycemic-hyperosmolar coma (NKHHC); E43 Unspecified severe protein-calorie malnutrition; R65.10 Systemic inflammatory response syndrome (SIRS) of non-infectious origin without acute organ dysfunction; E11.65 Type 2 diabetes mellitus with hyperglycemia; Z20.822 Contact with and (suspected) exposure to COVID-19; M54.9 Dorsalgia, unspecified; G89.29 Other chronic pain; Z68.41 Body mass index [BMI] 40.0-44.9, adult
CPT/HCPCS: 36415; 72131; 76770; 80053; 81001; 82948; 83735; 85025; 87040; 87081; 87086; 96365; 96375; 96376; 99285; J0696; J1650; J1815; J1885; J2270; J2405; J7060; Q0092

== ENCOUNTER 2022-07-19 19:06 | Emergency (ER) | payer OTHER ==
[~2022-07-19] VITALS: Ht 167.6 cm; Wt 108.9 kg
[~2022-07-19 19:06] MED LIST changes: -ACET-8386 PO
[2022-07-19 19:10] VITALS: BP 168/93
[2022-07-19 20:45] LABS: BASOPHILS # (AUTO) 0.1 K/uL (0.00-0.22); BASOPHILS % (AUTO) 1.5 % (0.0-2.0); EOSINOPHILS # (AUTO) 0.2 K/uL (0-0.4); EOSINOPHILS % (AUTO) 1.7 % (0.0-4.0); HEMATOCRIT 43.5 % (36-48); HEMOGLOBIN 14.3 g/dL (12.0-16.0); LYMPHOCYTES % (AUTO) 29.5 % (20.5-51.1); MEAN CORPUSCULAR HEMOGLOBIN 27 pg (27-31); MEAN CORPUSCULAR HGB CONC 33 g/dL (33-37); MONOCYTES # (AUTO) 0.5 K/uL (0.8-1.0); MONOCYTES % (AUTO) 5.2 % (1.7-9.3); NEUTROPHILS # (AUTO) 6.2 K/uL (1.8-7.7); NEUTROPHILS % (AUTO) 62.1 % (42.2-75.2); PLATELET COUNT (AUTO) 357 K/uL (140-450); RED BLOOD CELL COUNT(AUTO) 5.24 MIL/uL (4.20-5.40); RED CELL DISTRIBUTION WIDTH 14.7 % (11.6-13.7)
[2022-07-19 21:00] LABS: ALBUMIN 3.5 g/dL (3.4-5.0); ANION GAP 10.9 (8-16); ASPARTATE AMINOTRANSFERASE 3 U/L (15-37); CARBON DIOXIDE 29.6 mmol/L (21-32); CHLORIDE 96 mmol/L (98-107); CREATININE 0.8 mg/dL (0.6-1.3); GFR ARICAN-AMERICAN 102 mL/min (>90); POTASSIUM 4.5 mmol/L (3.5-5.1); SODIUM SERUM 132 mmol/L (136-145); TOTAL BILIRUBIN 0.2 mg/dL (0.0-1.0); UREA NITROGEN, BLOOD 15 mg/dL (7-18)
[2022-07-19 21:10] LABS: GLUCOSE 419 mg/dL (74-106)
[2022-07-19] MEDS ORDERED: KETOROLAC 15 MG/ML VIAL IM ONE (21:30)
[2022-07-19] MEDS ORDERED: BENZ200C4 PO (22:04)
[2022-07-19] MEDS ORDERED: METH-1681 PO (22:04)
[2022-07-19] MEDS ORDERED: LID5T TP (22:04)
--- NOTE | 2022-07-19 23:54 | NUR ---
PT TAKEN TO BED 4
--- NOTE | 2022-07-19 23:59 | NUR ---
Patient resting in bed, A/Ox4, chest rise and fall symmetrical, no s/s of discomfort. Addendum: 07/19/22 at 2359 by [email or web address] Patient resting in bed, A/Ox4, chest rise and fall symmetrical, no s/s of distress.
[2022-07-20 00:19] VITALS: BP 132/82
== END 2022-07-20 00:21 | disposition home or self-care (01) ==
LOC: MED 19:06
DX: R07.89 Other chest pain (principal); R05.9 Cough, unspecified; R51.9 Headache, unspecified; M79.10 Myalgia, unspecified site; E11.9 Type 2 diabetes mellitus without complications; Z88.0 Allergy status to penicillin; Z79.899 Other long term (current) drug therapy; Z98.890 Other specified postprocedural states; Z86.73 Personal history of transient ischemic attack (TIA), and cerebral infarction without residual deficits
CPT/HCPCS: 36415; 71045; 80053; 84484; 85025; 93005; 96372; 99285; J1885

== ENCOUNTER 2022-07-24 18:28 | Emergency (ER) | payer OTHER ==
[~2022-07-24] VITALS: Ht 167.6 cm; Wt 99.8 kg
[~2022-07-24 18:28] MED LIST changes: +BENZ200C4 PO; +LID5T TP; +METH-1681 PO
--- NOTE | 2022-07-24 18:59 | NUR ---
CALLEDX1. NO SHOW.
[2022-07-24 19:11] VITALS: BP 162/94
--- NOTE | 2022-07-24 22:36 | NUR ---
PT AMB TO ER BED 03
--- NOTE | 2022-07-24 22:47 | NUR ---
Patient lying in bed, A/Ox4, chest rise and fall symmetrical, no s/s of distress.
[2022-07-24] MEDS ORDERED: KETOROLAC 30 MG/ML VIAL IVP ONE (23:30)
[2022-07-24] MEDS ORDERED: HYDROcodone/APAP 5/325 MG 1 TAB TAB PO ONE (23:30)
--- NOTE | 2022-07-24 23:52 | NUR ---
X-Ray at bedside.
[2022-07-24] MEDS ORDERED: KETOROLAC 30 MG/ML VIAL IM ONE (23:55)
--- NOTE | 2022-07-25 00:30 | NUR ---
Patient lying in bed, A/Ox4, chest rise and fall symmetrical, no c/o pain or s/s of distress.
--- NOTE | 2022-07-25 02:00 | NUR ---
Patient lying in bed, A/Ox4, chest rise and fall symmetrical, no c/o pain or s/s of distress.
[2022-07-25] MEDS ORDERED: fentaNYL citrate 0.05 MG/ML VIAL IM ONE (02:10)
[2022-07-25] MEDS ORDERED: ACET-8905 PO (02:17)
[2022-07-25] MEDS ORDERED: DOXY-690 PO (02:17)
[2022-07-25] MEDS ORDERED: fentaNYL citrate 0.05 MG/ML VIAL ONE (02:22)
[2022-07-25 03:00] VITALS: BP 138/74
== END 2022-07-25 03:03 | disposition home or self-care (01) ==
LOC: MED 18:28
DX: M79.602 Pain in left arm (principal); E11.9 Type 2 diabetes mellitus without complications; Z79.899 Other long term (current) drug therapy; Z88.0 Allergy status to penicillin
CPT/HCPCS: 73090; 93971; 96372; 99285; J1885; J3010; Q0092

== ENCOUNTER 2023-08-11 19:20 | Emergency (ER) | payer OTHER ==
[~2023-08-11] VITALS: Ht 167.6 cm; Wt 108.9 kg
[~2023-08-11 19:20] MED LIST changes: +ACET-8905 PO; +DOXY-690 PO
[2023-08-11 19:35] VITALS: BP 127/72; PULSE 99; RESP 17; TEMP 97.7; O2SAT 97
[2023-08-11 20:30] LABS: BASOPHILS # (AUTO) 0.1 K/uL (0.00-0.22); BASOPHILS % (AUTO) 1.3 % (0.0-2.0); EOSINOPHILS # (AUTO) 0.1 K/uL (0-0.4); EOSINOPHILS % (AUTO) 1.4 % (0.0-4.0); HEMATOCRIT 43.3 % (36-48); HEMOGLOBIN 14.5 g/dL (12.0-16.0); LYMPHOCYTES # (AUTO) 2.4 K/uL (2.5-16.5); LYMPHOCYTES % (AUTO) 24.4 % (20.5-51.1); MEAN CORPUSCULAR HEMOGLOBIN 28 pg (27-31); MEAN CORPUSCULAR HGB CONC 34 g/dL (33-37); MEAN CORPUSCULAR VOLUME 83.5 fL (80-94); MONOCYTES # (AUTO) 0.5 K/uL (0.8-1.0); MONOCYTES % (AUTO) 5.4 % (1.7-9.3); NEUTROPHILS # (AUTO) 6.8 K/uL (1.8-7.7); NEUTROPHILS % (AUTO) 67.5 % (42.2-75.2); PLATELET COUNT (AUTO) 347 K/uL (140-450); RED BLOOD CELL COUNT(AUTO) 5.19 MIL/uL (4.20-5.40); RED CELL DISTRIBUTION WIDTH 13.8 % (11.6-13.7)
[2023-08-11 20:38] LABS: ANION GAP 11.8 (8-16); CALCIUM 8.8 mg/dL (8.5-10.1); CARBON DIOXIDE 28.4 mmol/L (21-32); POTASSIUM 4.2 mmol/L (3.5-5.1)
[2023-08-11 20:45] LABS: ALANINE AMINOTRANSFERASE 25 U/L (12-78); ALBUMIN 2.7 g/dL (3.4-5.0); ALKALINE PHOSPHATASE 104 U/L (50-136); ASPARTATE AMINOTRANSFERASE 15 U/L (15-37); BILIRUBIN,DIRECT 0.1 mg/dL (0.0-0.3); LIPASE 62 U/L (16-77); TOTAL BILIRUBIN 0.3 mg/dL (0.0-1.0); TOTAL PROTEIN, SERUM 7.9 g/dL (6.4-8.2)
[2023-08-11] MEDS: METOCLOPRAMIDE 10 MG/2 ML INJ VIAL IM ONE (21:11)
[2023-08-11] MEDS: FAMOTIDINE 20 MG TAB PO ONE (21:12)
[2023-08-11] MEDS: ALUMINUM HYD/MAG/SIMETHICONE 30 ML UDC PO ONE (21:12)
[2023-08-11] MEDS: KETOROLAC 30 MG/ML VIAL IM ONE (21:49)
[2023-08-11 22:10] VITALS: O2SAT 98
[2023-08-11] MEDS ORDERED: METO-486 PO (22:37)
[2023-08-11] MEDS ORDERED: ACET-8905 PO (22:37)
[2023-08-11 22:38] VITALS: BP 122/70; PULSE 95; RESP 16; O2SAT 98
== END 2023-08-11 22:43 | disposition home or self-care (01) ==
LOC: MED 19:20
DX: K44.9 Diaphragmatic hernia without obstruction or gangrene (principal); E11.9 Type 2 diabetes mellitus without complications; Z88.0 Allergy status to penicillin; Z79.4 Long term (current) use of insulin; Z79.899 Other long term (current) drug therapy
CPT/HCPCS: 36415; 80048; 80076; 81002; 81025; 83690; 84484; 85025; 93005; 96372; 99284; J1885; J2765